=== PATIENT | male | born 1995 | race Two or more races ===

== ENCOUNTER 2021-06-17 16:31 | Inpatient (IN) | payer MEDICAID ==
[~2021-06-17] VITALS: Ht 170.2 cm; Wt 91.2 kg
[2021-06-17] MEDS ORDERED: HALOPERIDOL 5 MG TABLET PO PRN (19:15)
[2021-06-17] MEDS ORDERED: ZOLPIDEM TARTRATE 10 MG TABLET PO PRN (19:15)
[2021-06-17] MEDS ORDERED: LORazepam 2 MG TABLET PO PRN (19:15)
[2021-06-18 04:42] VITALS: BP 137/88
[2021-06-18 07:52] LABS: BASOPHILS % (AUTO) 0.9 % (0.0-2.0); EOSINOPHILS % (AUTO) 1.7 % (1.0-6.0); HEMATOCRIT 46.6 % (41-53); LYMPHOCYTES # (AUTO) 2.5 K/uL (1.0-4.8); LYMPHOCYTES % (AUTO) 48.6 % (22.0-44.0); MEAN CORPUSCULAR HEMOGLOBIN 29.2 pg (26.0-34.0); MEAN CORPUSCULAR HGB CONC 34.4 G/dL (31.0-37.0); MEAN CORPUSCULAR VOLUME 85 fL (80-100); MONOCYTES # (AUTO) 0.4 K/uL (0.1-1.0); MONOCYTES % (AUTO) 8.1 % (2.0-9.0); NEUTROPHILS # (AUTO) 2.1 K/uL (1.8-7.7); NEUTROPHILS % (AUTO) 40.7 % (40.0-70.0); PLATELET COUNT (AUTO) 201 K/uL (150-450); RED BLOOD CELL COUNT(AUTO) 5.47 MIL/uL (4.50-5.90); RED CELL DISTRIBUTION WIDTH 13.1 % (11.5-14.5)
[2021-06-18 08:02] LABS: HEMOGLOBIN A1C 5.4 % (3.8-5.6)
[2021-06-18 08:24] LABS: ALANINE AMINOTRANSFERASE 106 U/L (12-78); ALBUMIN 4.1 g/dL (3.4-5.0); ALKALINE PHOSPHATASE 56 U/L (46-116); ANION GAP 10 mmol/L (8-16); ASPARTATE AMINOTRANSFERASE 38 U/L (15-37); BILIRUBIN,TOTAL 0.4 mg/dL (0.1-1.0); CARBON DIOXIDE 29 mmol/L (22-29); CHLORIDE 103 mmol/L (98-107); CHOL/HDL RATIO 6.3 (4.2-7.3); CHOLESTEROL 175 mg/dL (131-200); CREATININE 0.95 mg/dL (0.60-1.30); FREE T4 (FREE THYROXINE) 1.04 ng/dL (0.76-1.46); GLOMERULAR FILTR. RATE CALC > 60 mL/min (>60); GLUCOSE,RANDOM 86 mg/dL (70-110); HDL CHOLESTEROL 28 mg/dL (40-60); LDL CHOL (CALC.) 122 mg/dL (0-130); POTASSIUM 3.9 mmol/L (3.5-5.1); SODIUM SERUM 142 mmol/L (136-145); THYROID STIMULATING HORMONE 5.82 uIU/mL (0.36-3.74); TOTAL PROTEIN, SERUM 7.3 g/dL (6.4-8.2); TRIGLYCERIDES 127 mg/dL (15-150); UREA NITROGEN, BLOOD 16 mg/dL (7-18)
[2021-06-18 09:11] VITALS: BP 142/89
[2021-06-18 16:12] VITALS: BP 131/78
[2021-06-19 04:06] VITALS: BP 128/83
[2021-06-19 08:28] VITALS: BP 121/78
[2021-06-19 16:13] VITALS: BP 106/64
[2021-06-20 00:58] VITALS: BP 125/66
[2021-06-20 08:11] VITALS: BP 116/75
== END 2021-06-20 16:31 | disposition home or self-care (01) | DRG 750 ==
LOC: B3A 19:04
PROVIDERS: ADMIT Psychiatry & Neurology Child & Adolescent Psychiatry; ATTEND Psychiatry & Neurology Child & Adolescent Psychiatry
DX: F20.9 Schizophrenia, unspecified (principal); F41.9 Anxiety disorder, unspecified; G47.00 Insomnia, unspecified; I10 Essential (primary) hypertension
CPT/HCPCS: 80053; 80061; 83036; 84439; 84443; 85025; 87081

== ENCOUNTER 2022-02-09 11:19 | Inpatient (IN) | payer MEDICAID, OTHER ==
[~2022-02-09] VITALS: Ht 170.2 cm; Wt 88.5 kg
[2022-02-09 12:05] LABS: BASOPHILS % (AUTO) 1.4 % (0.0-2.0); EOSINOPHILS % (AUTO) 0.3 % (1.0-6.0); HEMATOCRIT 47.3 % (41-53); HEMOGLOBIN 15.9 g/dL (13.5-17.5); LYMPHOCYTES # (AUTO) 1.5 K/uL (1.0-4.8); LYMPHOCYTES % (AUTO) 34.6 % (22.0-44.0); MEAN CORPUSCULAR HEMOGLOBIN 28.8 pg (26.0-34.0); MEAN CORPUSCULAR HGB CONC 33.7 G/dL (31.0-37.0); MEAN CORPUSCULAR VOLUME 86 fL (80-100); MONOCYTES # (AUTO) 0.4 K/uL (0.1-1.0); NEUTROPHILS # (AUTO) 2.3 K/uL (1.8-7.7); NEUTROPHILS % (AUTO) 53.7 % (40.0-70.0); PLATELET COUNT (AUTO) 205 K/uL (150-450); RED BLOOD CELL COUNT(AUTO) 5.53 MIL/uL (4.50-5.90); RED CELL DISTRIBUTION WIDTH 13.2 % (11.5-14.5)
[2022-02-09 12:14] LABS: ANION GAP 8 mmol/L (8-16); CALCIUM, TOTAL 9.2 mg/dL (8.8-10.5); CARBON DIOXIDE 28 mmol/L (22-29); CHLORIDE 101 mmol/L (98-107); CREATININE 0.79 mg/dL (0.60-1.30); GLUCOSE,RANDOM 93 mg/dL (70-110); POTASSIUM 3.7 mmol/L (3.5-5.1); SODIUM SERUM 137 mmol/L (136-145); UREA NITROGEN, BLOOD 16 mg/dL (7-18)
[2022-02-09 12:16] LABS: GLOMERULAR FILTR. RATE CALC > 60 mL/min (>60)
[2022-02-09 12:17] LABS: COVID AG,FIA SOURCE NASAL SWAB
[2022-02-09 12:20] LABS: ALANINE AMINOTRANSFERASE 88 U/L (12-78); ALBUMIN 4.5 g/dL (3.4-5.0); ALKALINE PHOSPHATASE 65 U/L (46-116); ASPARTATE AMINOTRANSFERASE 32 U/L (15-37); BILIRUBIN,TOTAL 0.4 mg/dL (0.1-1.0)
[2022-02-09] MEDS ORDERED: DiphenhydrAMINE HCL 25 MG CAPSULE PO ONE (12:30)
[2022-02-09] MEDS ORDERED: LORazepam 2 MG TABLET PO ONE (12:30)
[2022-02-09] MEDS ORDERED: HALOPERIDOL 5 MG TABLET PO ONE (12:30)
[2022-02-09] MEDS ORDERED: ZOLPIDEM TARTRATE 10 MG TABLET PO PRN (13:30)
[2022-02-09 20:53] VITALS: BP 126/70
[2022-02-09] MEDS ORDERED: INFLUENZA VIRUS VACCINE QVS 2022-23 (6MO+)/PF 60 MCG/0.5 ML SYRINGE IM. ONE (22:00)
[2022-02-10 08:00] VITALS: BP 138/77
[2022-02-10] MEDS: LORazepam 2 MG TABLET PO PRN ×2 (08:48→16:15)
[2022-02-10] MEDS: HALOPERIDOL 5 MG TABLET PO PRN ×2 (08:48→16:15)
[2022-02-10] MEDS ORDERED: DIVA-112 PO (12:13)
[2022-02-10] MEDS: DIVALPROEX SODIUM 500 MG DR TABLET PO SCH ×2 (13:11→20:18)
[2022-02-10] MEDS: RisperiDONE 1 MG TABLET PO SCH ×2 (13:11→20:18)
[2022-02-10 16:10] VITALS: BP 165/82
[2022-02-10] MEDS ORDERED: ONDANSETRON HCL 4 MG TABLET PO PRN (20:00)
[2022-02-10] MEDS ORDERED: ACETAMINOPHEN 325 MG TABLET PO PRN (20:00)
[2022-02-10] MEDS ORDERED: LOPERAMIDE HCL 2 MG CAPSULE PO PRN (20:00)
[2022-02-10] MEDS ORDERED: NICOTINE 14 MG/24 HOUR PATCH TD PRN (20:00)
[2022-02-10] MEDS ORDERED: MAGNESIUM HYDROXIDE SUSPENSION 30 ML UDCUP PO PRN (20:00)
[2022-02-10] MEDS ORDERED: DOCUSATE SODIUM 100 MG CAPSULE PO PRN (20:00)
[2022-02-10] MEDS ORDERED: MAG HYDROX/AL HYDROX/SIMETH ES 30 ML SUSPENSION UDCUP PO PRN (20:00)
[2022-02-10] MEDS ORDERED: ALBUTEROL SULFATE HFA 90 MCG/PUFF 8 GM INHALER IH PRN (20:00)
[2022-02-10] MEDS ORDERED: GuaiFENesin/D-METHORPHAN [SUGAR-FREE] 200-20MG/10 ML SYRUP UDCUP PO PRN (20:00)
[2022-02-10] MEDS ORDERED: IBUPROFEN 400 MG TABLET PO PRN (20:00)
[2022-02-10] MEDS ORDERED: PETROLATUM,WHITE 28 GM JELLY TP PRN (20:00)
[2022-02-10] MEDS ORDERED: CloNIDine HCL 0.1 MG TABLET PO PRN (20:00)
[2022-02-10 20:14] VITALS: BP 135/66
[2022-02-11] MEDS: DIVALPROEX SODIUM 500 MG DR TABLET PO SCH ×2 (08:37→20:04)
[2022-02-11] MEDS: RisperiDONE 1 MG TABLET PO SCH ×2 (08:37→20:04)
[2022-02-11 08:47] VITALS: BP 124/80
[2022-02-11] MEDS ORDERED: CLON0.5T4 PO (17:20)
[2022-02-11] MEDS ORDERED: PALI234D IM (17:20)
[2022-02-11 20:40] VITALS: BP 110/68
[2022-02-12] MEDS: LORazepam 2 MG TABLET PO PRN (08:36)
[2022-02-12] MEDS: HALOPERIDOL 5 MG TABLET PO PRN (08:36)
[2022-02-12 08:47] VITALS: BP 130/71
[2022-02-12] MEDS: DIVALPROEX SODIUM 500 MG DR TABLET PO SCH ×2 (08:52→22:27)
[2022-02-12] MEDS: RisperiDONE 1 MG TABLET PO SCH (08:52)
[2022-02-12 22:00] VITALS: BP 123/60
[2022-02-13] VITALS: BP 113/56
[2022-02-13] MEDS ORDERED: PALIPERIDONE PALMITATE 234 MG/1.5 ML SYRINGE IM SCH (09:00)
== END 2022-02-13 03:20 | disposition home or self-care (01) | DRG 750 ==
LOC: EMS 11:32 → B2S 14:35
PROVIDERS: ADMIT Psychiatry & Neurology Psychiatry; ATTEND Psychiatry & Neurology Psychiatry
DX: F20.0 Paranoid schizophrenia (principal); R45.850 Homicidal ideations; E66.9 Obesity, unspecified; F17.210 Nicotine dependence, cigarettes, uncomplicated; F31.9 Bipolar disorder, unspecified; D72.819 Decreased white blood cell count, unspecified; Z81.8 Family history of other mental and behavioral disorders; Z79.899 Other long term (current) drug therapy; Z68.30 Body mass index [BMI] 30.0-30.9, adult
CPT/HCPCS: 80053; 85025; 90686; G0480

== ENCOUNTER 2023-01-14 11:47 | Inpatient (IN) | payer MEDICAID, OTHER ==
[~2023-01-14] VITALS: Ht 172.7 cm; Wt 84.4 kg
[~2023-01-14 11:47] MED LIST: DIVA-112 PO; PALI234D IM
[2023-01-14] MEDS ORDERED: HALOPERIDOL LACTATE 5 MG/ML VIAL IM ONE (13:00)
[2023-01-14] MEDS ORDERED: LORazepam 2 MG/ML VIAL IM ONE (13:00)
[2023-01-14] MEDS ORDERED: DiphenhydrAMINE HCL 50 MG/ML VIAL IM ONE (13:00)
[2023-01-14 13:05] LABS: BASOPHILS % (AUTO) 0.5 % (0.0-2.0); EOSINOPHILS % (AUTO) 0.1 % (1.0-6.0); HEMATOCRIT 42.9 % (41-53); HEMOGLOBIN 14.9 g/dL (13.5-17.5); LYMPHOCYTES % (AUTO) 15.5 % (22.0-44.0); MEAN CORPUSCULAR HGB CONC 34.7 G/dL (31.0-37.0); MEAN CORPUSCULAR VOLUME 83 fL (80-100); MONOCYTES # (AUTO) 0.3 K/uL (0.1-1.0); MONOCYTES % (AUTO) 4.2 % (2.0-9.0); NEUTROPHILS # (AUTO) 5.1 K/uL (1.8-7.7); NEUTROPHILS % (AUTO) 79.7 % (40.0-70.0); PLATELET COUNT (AUTO) 195 K/uL (150-450); RED BLOOD CELL COUNT(AUTO) 5.14 MIL/uL (4.50-5.90); RED CELL DISTRIBUTION WIDTH 13.3 % (11.5-14.5); WHITE BLOOD COUNT (AUTO) 6.3 K/uL (4.5-11.0)
[2023-01-14 13:12] LABS: ANION GAP 9 mmol/L (8-16); CALCIUM, TOTAL 9.1 mg/dL (8.8-10.5); CARBON DIOXIDE 26 mmol/L (22-29); CHLORIDE 103 mmol/L (98-107); GLOMERULAR FILTR. RATE CALC > 60 mL/min (>60); GLUCOSE,RANDOM 94 mg/dL (70-110); POTASSIUM 3.2 mmol/L (3.5-5.1); SODIUM SERUM 138 mmol/L (136-145); UREA NITROGEN, BLOOD 21 mg/dL (7-18)
[2023-01-14 13:15] LABS: ALCOHOL, BLOOD (SERUM) < 3 mg/dL (0-10)
[2023-01-14] MEDS ORDERED: POTASSIUM CHLORIDE 20 MEQ ER TABLET PO ONE (13:15)
[2023-01-14 13:20] LABS: BILIRUBIN,TOTAL 0.4 mg/dL (0.1-1.0)
[2023-01-14 13:21] LABS: ALANINE AMINOTRANSFERASE 53 U/L (12-78); ALBUMIN 4.5 g/dL (3.4-5.0); TOTAL PROTEIN, SERUM 7.8 g/dL (6.4-8.2); VALPROIC ACID 7 mcg/mL (50-100)
[2023-01-14 13:30] LABS: ALKALINE PHOSPHATASE 65 U/L (46-116); ASPARTATE AMINOTRANSFERASE 35 U/L (15-37)
[2023-01-14 13:30] LABS: COVID AG,FIA SOURCE NASOPHARYNGEAL
[2023-01-14 13:33] LABS: APPEARANCE,URINE CLEAR (CLEAR); BILIRUBIN,URINE NEGATIVE (NEGATIVE); COLOR,URINE LIGHT YELLOW (YELLOW); GLUCOSE, URINE (UA) NEGATIVE (NEGATIVE); KETONES,URINE TRACE mg/dL (NEGATIVE); LEUKOCYTE ESTERASE ,URINE NEGATIVE (NEGATIVE); NITRATE,URINE NEGATIVE (NEGATIVE); OCCULT BLOOD,URINE NEGATIVE (NEGATIVE); PROTEIN,URINE TRACE mg/dL (NEGATIVE); SPECIFIC GRAVITIY, URINE 1.032 (1.003-1.030); UROBILINOGEN,URINE <=1.0 mg/dL (<=1.0)
[2023-01-14 13:42] LABS: ALCOHOL, URINE DRUG SCREEN NEGATIVE (NEGATIVE); AMPHET/METH SCREEN,URINE NEGATIVE (NEGATIVE); BARBITURATE SCREEN, URINE NEGATIVE (NEGATIVE); BENZODIAZEPINES SCREEN,URINE NEGATIVE (NEGATIVE); CANNABINOID SCREEN,URINE NEGATIVE (NEGATIVE); COCAINE SCREEN,URINE NEGATIVE (NEGATIVE); METHADONE SCREEN, URINE NEGATIVE (NEGATIVE); OPIATE SCREEN,URINE NEGATIVE (NEGATIVE); PHENCYCLIDINE SCREEN,URINE NEGATIVE (NEGATIVE)
[2023-01-14 13:53] LABS: SARS-COV2 (COVID) ANTIGEN,FIA Negative (Negative)
[2023-01-15] MEDS ORDERED: INFLUENZA VIRUS VACCINE QVS 2023-24 (6MO+)/PF 60 MCG/0.5 ML SYRINGE IM. ONE (00:45)
[2023-01-15 00:47] VITALS: BP 110/78; PULSE 78; RESP 18; TEMP 97.5; O2SAT 99
[2023-01-15] MEDS: LORazepam 2 MG TABLET PO PRN ×2 (08:08→20:26)
[2023-01-15] MEDS: QUEtiapine FUMARATE 100 MG TABLET PO PRN (08:08)
[2023-01-15 08:31] VITALS: BP 145/89; PULSE 77; RESP 17; TEMP 97.9; O2SAT 99
[2023-01-15 08:32] VITALS: BP 145/85; PULSE 77; RESP 17; TEMP 97.9; O2SAT 99
[2023-01-15 08:57] LABS: HEMOGLOBIN A1C 5.2 % (3.8-5.6)
[2023-01-15 09:03] LABS: CHOL/HDL RATIO 4.2 (4.2-7.3); FREE T4 (FREE THYROXINE) 0.94 ng/dL (0.76-1.46); POTASSIUM 4.2 mmol/L (3.5-5.1); THYROID STIMULATING HORMONE 1.88 uIU/mL (0.36-3.74)
[2023-01-15] MEDS ORDERED: RISP2TAB45 PO (09:35)
[2023-01-15] MEDS ORDERED: VALPROIC ACID 250 MG CAPSULE PO SCH (09:45)
[2023-01-15] MEDS: DIVALPROEX SODIUM 500 MG DR TABLET PO SCH ×2 (10:27→20:26)
[2023-01-15] MEDS: RisperiDONE 2 MG TABLET PO SCH ×2 (10:27→20:26)
[2023-01-15] MEDS ORDERED: CLON0.5T4 PO (12:40)
[2023-01-15] MEDS ORDERED: CloNIDine HCL 0.1 MG TABLET PO PRN (14:15)
[2023-01-15] MEDS ORDERED: PETROLATUM,WHITE 28 GM JELLY TP PRN (14:15)
[2023-01-15] MEDS ORDERED: ACETAMINOPHEN 325 MG TABLET PO PRN (14:15)
[2023-01-15] MEDS ORDERED: MAGNESIUM HYDROXIDE SUSPENSION 30 ML UDCUP PO PRN (14:15)
[2023-01-15] MEDS ORDERED: NICOTINE 14 MG/24 HOUR PATCH TD PRN (14:15)
[2023-01-15] MEDS ORDERED: LOPERAMIDE HCL 2 MG CAPSULE PO PRN (14:15)
[2023-01-15] MEDS ORDERED: GuaiFENesin/D-METHORPHAN [SUGAR-FREE] 200-20MG/10 ML SYRUP UDCUP PO PRN (14:15)
[2023-01-15] MEDS ORDERED: ONDANSETRON HCL 4 MG TABLET PO PRN (14:15)
[2023-01-15] MEDS ORDERED: DOCUSATE SODIUM 100 MG CAPSULE PO PRN (14:15)
[2023-01-15] MEDS ORDERED: ALBUTEROL SULFATE HFA 90 MCG/PUFF 8 GM INHALER IH PRN (14:15)
[2023-01-15] MEDS ORDERED: MAG HYDROX/ALUMINUM HYD/SIMETH ES 30 ML SUSPENSION UDCUP PO PRN (14:15)
[2023-01-15] MEDS ORDERED: IBUPROFEN 400 MG TABLET PO PRN (14:15)
[2023-01-15 20:21] VITALS: BP 126/68; PULSE 70; RESP 18; TEMP 97.7; O2SAT 96
[2023-01-16 08:40] LABS: HEMOGLOBIN A1C 5.3 % (3.8-5.6)
[2023-01-16 08:48] LABS: CHOL/HDL RATIO 4.3 (4.2-7.3); THYROID STIMULATING HORMONE 2.52 uIU/mL (0.36-3.74)
[2023-01-16 08:50] VITALS: RESP 18
[2023-01-16] MEDS: DIVALPROEX SODIUM 500 MG DR TABLET PO SCH ×2 (09:50→20:10)
[2023-01-16] MEDS: LORazepam 2 MG TABLET PO PRN ×2 (09:50→19:01)
[2023-01-16] MEDS: RisperiDONE 2 MG TABLET PO SCH ×2 (09:51→20:10)
[2023-01-16] MEDS: QUEtiapine FUMARATE 100 MG TABLET PO PRN (19:01)
[2023-01-16 20:22] VITALS: BP 106/62; PULSE 70; RESP 18; TEMP 97.8; O2SAT 97
[2023-01-17] MEDS: RisperiDONE 2 MG TABLET PO SCH ×2 (08:12→21:02)
[2023-01-17] MEDS: DIVALPROEX SODIUM 500 MG DR TABLET PO SCH ×2 (08:12→21:02)
[2023-01-17 08:23] VITALS: RESP 18
[2023-01-17] MEDS: QUEtiapine FUMARATE 100 MG TABLET PO PRN (17:08)
[2023-01-17] MEDS: LORazepam 2 MG TABLET PO PRN (17:08)
[2023-01-17 20:26] VITALS: BP 104/60; PULSE 75; RESP 18; TEMP 97.6; O2SAT 98
[2023-01-18 09:05] VITALS: BP 107/60; PULSE 82; RESP 17; TEMP 97.3; O2SAT 97
[2023-01-18] MEDS: DIVALPROEX SODIUM 500 MG DR TABLET PO SCH ×2 (09:09→20:29)
[2023-01-18] MEDS: RisperiDONE 2 MG TABLET PO SCH ×2 (09:09→20:29)
[2023-01-18] MEDS: LORazepam 2 MG TABLET PO PRN (16:30)
[2023-01-18] MEDS: QUEtiapine FUMARATE 100 MG TABLET PO PRN (16:30)
[2023-01-18 20:16] VITALS: BP 114/62; PULSE 91; RESP 20; TEMP 98; O2SAT 99
[2023-01-18] MEDS: ZOLPIDEM TARTRATE 10 MG TABLET PO PRN (20:29)
[2023-01-19] MEDS: DIVALPROEX SODIUM 500 MG DR TABLET PO SCH ×2 (08:05→20:08)
[2023-01-19] MEDS: RisperiDONE 2 MG TABLET PO SCH ×2 (08:05→20:08)
[2023-01-19] MEDS: QUEtiapine FUMARATE 100 MG TABLET PO PRN (08:25)
[2023-01-19] MEDS: LORazepam 2 MG TABLET PO PRN (08:25)
[2023-01-19 08:26] VITALS: BP 100/60; PULSE 70; RESP 18; TEMP 97.6; O2SAT 98
[2023-01-19] MEDS: ZOLPIDEM TARTRATE 10 MG TABLET PO PRN (20:08)
[2023-01-20 02:14] VITALS: RESP 18; TEMP 97.9
[2023-01-20 08:24] VITALS: BP 106/60; PULSE 76; RESP 18; TEMP 97.7; O2SAT 99
[2023-01-20] MEDS: LORazepam 2 MG TABLET PO PRN ×2 (08:26→16:39)
[2023-01-20] MEDS: RisperiDONE 2 MG TABLET PO SCH ×2 (08:26→20:31)
[2023-01-20] MEDS: DIVALPROEX SODIUM 500 MG DR TABLET PO SCH ×2 (08:26→20:31)
[2023-01-20] MEDS: QUEtiapine FUMARATE 100 MG TABLET PO PRN ×2 (08:26→16:39)
[2023-01-20 20:17] VITALS: BP 106/62; PULSE 63; RESP 18; TEMP 97.8; O2SAT 97
[2023-01-20] MEDS: ZOLPIDEM TARTRATE 10 MG TABLET PO PRN (20:31)
[2023-01-21 08:20] VITALS: BP 116/72; PULSE 79; RESP 18; TEMP 97.8; O2SAT 99
[2023-01-21] MEDS: LORazepam 2 MG TABLET PO PRN ×2 (08:51→16:30)
[2023-01-21] MEDS: DIVALPROEX SODIUM 500 MG DR TABLET PO SCH ×2 (08:51→20:57)
[2023-01-21] MEDS: QUEtiapine FUMARATE 100 MG TABLET PO PRN ×2 (08:51→16:30)
[2023-01-21] MEDS: RisperiDONE 2 MG TABLET PO SCH ×2 (08:51→20:57)
[2023-01-21 20:48] VITALS: BP 118/63; PULSE 75; RESP 18; TEMP 97.8
[2023-01-21] MEDS: ZOLPIDEM TARTRATE 10 MG TABLET PO PRN (20:57)
[2023-01-22 08:41] VITALS: RESP 18
[2023-01-22] MEDS: DIVALPROEX SODIUM 500 MG DR TABLET PO SCH ×2 (08:42→20:40)
[2023-01-22] MEDS: RisperiDONE 2 MG TABLET PO SCH ×2 (08:42→20:40)
[2023-01-22] MEDS: QUEtiapine FUMARATE 100 MG TABLET PO PRN (16:57)
[2023-01-22] MEDS: LORazepam 2 MG TABLET PO PRN (16:57)
[2023-01-22 20:28] VITALS: BP 110/62; PULSE 70; RESP 18; TEMP 97.6; O2SAT 96
[2023-01-22] MEDS: ZOLPIDEM TARTRATE 10 MG TABLET PO PRN (20:40)
[2023-01-23] MEDS: DIVALPROEX SODIUM 500 MG DR TABLET PO SCH ×2 (08:47→21:14)
[2023-01-23] MEDS: RisperiDONE 2 MG TABLET PO SCH ×2 (08:47→21:15)
[2023-01-23 12:40] VITALS: BP 117/68; PULSE 75; RESP 18; TEMP 97.8; O2SAT 97
[2023-01-23 20:22] VITALS: BP 118/70; PULSE 111; RESP 20; TEMP 97.8; O2SAT 96
[2023-01-24] MEDS: ZOLPIDEM TARTRATE 10 MG TABLET PO PRN (01:08)
[2023-01-24] MEDS: RisperiDONE 2 MG TABLET PO SCH ×2 (08:22→20:57)
[2023-01-24] MEDS: DIVALPROEX SODIUM 500 MG DR TABLET PO SCH ×2 (08:22→20:57)
[2023-01-24 08:43] VITALS: BP 120/70; PULSE 100; RESP 18; TEMP 97.7; O2SAT 98
[2023-01-24] MEDS: LORazepam 2 MG TABLET PO PRN (16:51)
[2023-01-24] MEDS: QUEtiapine FUMARATE 100 MG TABLET PO PRN (16:51)
[2023-01-25 00:53] VITALS: BP 132/79; PULSE 93; RESP 18; TEMP 97.6
[2023-01-25] MEDS: LORazepam 2 MG TABLET PO PRN ×2 (07:42→20:49)
[2023-01-25] MEDS: DIVALPROEX SODIUM 500 MG DR TABLET PO SCH ×2 (08:03→20:49)
[2023-01-25] MEDS: RisperiDONE 2 MG TABLET PO SCH ×2 (08:03→20:49)
[2023-01-25 08:12] VITALS: BP 128/73; PULSE 100; RESP 18; TEMP 97.7; O2SAT 97
[2023-01-25 20:19] VITALS: BP 125/62; PULSE 110; RESP 20; TEMP 97.5; O2SAT 99
[2023-01-25] MEDS: QUEtiapine FUMARATE 100 MG TABLET PO PRN (20:49)
[2023-01-26] MEDS: LORazepam 2 MG TABLET PO PRN ×2 (08:41→20:53)
[2023-01-26] MEDS: RisperiDONE 2 MG TABLET PO SCH ×2 (08:41→20:53)
[2023-01-26] MEDS: QUEtiapine FUMARATE 100 MG TABLET PO PRN (08:41)
[2023-01-26] MEDS: DIVALPROEX SODIUM 500 MG DR TABLET PO SCH ×2 (08:41→20:53)
[2023-01-26 08:42] VITALS: BP 126/73; PULSE 92; RESP 18; TEMP 98; O2SAT 99
[2023-01-26 20:28] VITALS: BP 130/64; PULSE 102; RESP 18; TEMP 97.8; O2SAT 98
[2023-01-27] MEDS: LORazepam 2 MG TABLET PO PRN (04:22)
[2023-01-27] MEDS: RisperiDONE 2 MG TABLET PO SCH ×2 (08:25→20:47)
[2023-01-27] MEDS: DIVALPROEX SODIUM 500 MG DR TABLET PO SCH ×2 (08:25→20:47)
[2023-01-27 10:06] VITALS: BP 116/73; PULSE 84; RESP 18; TEMP 97.3; O2SAT 97
[2023-01-27 20:33] VITALS: RESP 16
[2023-01-28] MEDS: RisperiDONE 2 MG TABLET PO SCH ×2 (08:14→20:45)
[2023-01-28] MEDS: DIVALPROEX SODIUM 500 MG DR TABLET PO SCH ×2 (08:14→20:45)
[2023-01-28 09:47] VITALS: BP 116/74; PULSE 90; RESP 18; TEMP 97.7; O2SAT 97
[2023-01-28 20:44] VITALS: BP 102/62; PULSE 68; RESP 18; TEMP 97.7
[2023-01-29] MEDS: RisperiDONE 2 MG TABLET PO SCH ×2 (08:20→20:40)
[2023-01-29] MEDS: DIVALPROEX SODIUM 500 MG DR TABLET PO SCH ×2 (08:20→20:40)
[2023-01-29 08:47] VITALS: BP 120/58; PULSE 75; RESP 18; TEMP 97; O2SAT 97
[2023-01-29] MEDS: QUEtiapine FUMARATE 100 MG TABLET PO PRN (17:15)
[2023-01-29 20:20] VITALS: BP 108/64; PULSE 67; RESP 18; TEMP 97.6; O2SAT 97
[2023-01-30 08:43] VITALS: RESP 18
[2023-01-30] MEDS: RisperiDONE 2 MG TABLET PO SCH ×2 (08:54→20:38)
[2023-01-30] MEDS: DIVALPROEX SODIUM 500 MG DR TABLET PO SCH ×2 (08:54→20:38)
[2023-01-30] MEDS: QUEtiapine FUMARATE 100 MG TABLET PO PRN (09:32)
[2023-01-30 20:38] VITALS: BP 132/72; PULSE 101; RESP 20; TEMP 97.5; O2SAT 97
[2023-01-31 08:42] VITALS: BP 114/75; PULSE 81; RESP 17; TEMP 98; O2SAT 98
[2023-01-31] MEDS: RisperiDONE 2 MG TABLET PO SCH ×2 (09:06→20:18)
[2023-01-31] MEDS: DIVALPROEX SODIUM 500 MG DR TABLET PO SCH ×2 (09:06→20:19)
[2023-01-31 20:17] VITALS: BP 114/62; PULSE 96; RESP 20; TEMP 97.8; O2SAT 98
[2023-01-31] MEDS: QUEtiapine FUMARATE 100 MG TABLET PO PRN (20:19)
[2023-02-01 08:44] VITALS: BP 110/73; PULSE 79; RESP 17; TEMP 98.3; O2SAT 98
[2023-02-01] MEDS: DIVALPROEX SODIUM 500 MG DR TABLET PO SCH ×2 (08:47→20:38)
[2023-02-01] MEDS: RisperiDONE 2 MG TABLET PO SCH ×2 (08:47→20:38)
[2023-02-01 21:09] VITALS: BP 141/61; PULSE 66; RESP 17; TEMP 97.1; O2SAT 98
[2023-02-02] MEDS: RisperiDONE 2 MG TABLET PO SCH ×2 (08:06→20:30)
[2023-02-02] MEDS: DIVALPROEX SODIUM 500 MG DR TABLET PO SCH ×2 (08:06→20:29)
[2023-02-02 08:16] VITALS: BP 131/74; PULSE 70; RESP 18; TEMP 98.3; O2SAT 99
[2023-02-02 20:10] VITALS: BP 122/71; PULSE 78; RESP 18; TEMP 98.3; O2SAT 97
[2023-02-02] MEDS: QUEtiapine FUMARATE 100 MG TABLET PO PRN (20:30)
[2023-02-03 08:12] VITALS: RESP 18
[2023-02-03] MEDS: DIVALPROEX SODIUM 500 MG DR TABLET PO SCH ×2 (08:21→20:22)
[2023-02-03] MEDS: RisperiDONE 2 MG TABLET PO SCH ×2 (08:21→20:22)
[2023-02-03] MEDS ORDERED: RISP2TAB86 PO (16:35)
[2023-02-03] MEDS ORDERED: DIVA-112 PO (16:35)
[2023-02-03] MEDS: QUEtiapine FUMARATE 100 MG TABLET PO PRN (20:22)
[2023-02-03 20:44] VITALS: BP 108/62; PULSE 80; RESP 18; TEMP 97.8; O2SAT 96
[2023-02-04] MEDS: DIVALPROEX SODIUM 500 MG DR TABLET PO SCH ×2 (08:21→20:26)
[2023-02-04] MEDS: QUEtiapine FUMARATE 100 MG TABLET PO PRN ×2 (08:21→20:27)
[2023-02-04] MEDS: RisperiDONE 2 MG TABLET PO SCH ×2 (08:21→20:27)
[2023-02-04 08:44] VITALS: BP 105/60; PULSE 67; RESP 17; TEMP 97.5; O2SAT 98
[2023-02-04 20:41] VITALS: BP 114/63; PULSE 72; RESP 18; TEMP 97.8; O2SAT 99
[2023-02-05] MEDS: RisperiDONE 2 MG TABLET PO SCH ×2 (08:14→20:16)
[2023-02-05] MEDS: DIVALPROEX SODIUM 500 MG DR TABLET PO SCH ×2 (08:14→20:16)
[2023-02-05 08:32] VITALS: BP 122/69; PULSE 82; RESP 18; TEMP 97.7; O2SAT 98
[2023-02-05] MEDS: QUEtiapine FUMARATE 100 MG TABLET PO PRN (20:16)
[2023-02-05 20:35] VITALS: BP 110/70; PULSE 73; RESP 16; TEMP 97.8; O2SAT 99
[2023-02-06 08:42] VITALS: BP 112/68; PULSE 86; RESP 17; TEMP 98.2; O2SAT 97
[2023-02-06] MEDS: DIVALPROEX SODIUM 500 MG DR TABLET PO SCH ×2 (09:30→20:38)
[2023-02-06] MEDS: RisperiDONE 2 MG TABLET PO SCH ×2 (09:30→20:38)
[2023-02-06] MEDS: QUEtiapine FUMARATE 100 MG TABLET PO PRN (20:38)
[2023-02-06 20:54] VITALS: BP 120/77; PULSE 68; RESP 18; TEMP 97.3; O2SAT 97
[2023-02-07] MEDS: RisperiDONE 2 MG TABLET PO SCH (08:06)
[2023-02-07] MEDS: DIVALPROEX SODIUM 500 MG DR TABLET PO SCH (08:06)
[2023-02-07 08:22] VITALS: BP 106/71; PULSE 82; RESP 17; TEMP 98.5; O2SAT 98
[2023-02-07] MEDS ORDERED: DIVA-112 PO (09:37)
[2023-02-07] MEDS ORDERED: RISP2TAB86 PO (09:37)
== END 2023-02-07 15:00 | disposition home or self-care (01) | DRG 750 ==
LOC: EMS 12:19 → B3A 22:25 → EMS 01-15 00:02 → B3A 01-19 20:32
PROVIDERS: ADMIT Psychiatry & Neurology Psychiatry; ATTEND Psychiatry & Neurology Psychiatry
PROC: GZHZZZZ Group Psychotherapy (ICD-10-PCS; principal; 2023-01-15)
DX: F20.0 Paranoid schizophrenia (principal); R45.851 Suicidal ideations; F17.210 Nicotine dependence, cigarettes, uncomplicated; R03.0 Elevated blood-pressure reading, without diagnosis of hypertension; F12.90 Cannabis use, unspecified, uncomplicated; Z79.899 Other long term (current) drug therapy; Z59.00 Homelessness unspecified; Z20.822 Contact with and (suspected) exposure to COVID-19
CPT/HCPCS: 80053; 80061; 80164; 80307; 81003; 83036; 84132; 84439; 84443; 85025; 87081; 99285; G0480; J1200; J1630; J2060

== ENCOUNTER 2023-06-29 01:36 | Inpatient (IN) | payer MEDICAID, OTHER ==
[~2023-06-29] VITALS: Ht 170.2 cm; Wt 85.7 kg
[~2023-06-29 01:36] MED LIST changes: -PALI234D IM; +RISP-32 PO
[2023-06-29 03:17] LABS: BASOPHILS % (AUTO) 0.9 % (0.0-2.0); EOSINOPHILS % (AUTO) 4.1 % (1.0-6.0); HEMATOCRIT 43.3 % (41-53); HEMOGLOBIN 15.3 g/dL (13.5-17.5); LYMPHOCYTES # (AUTO) 1.7 K/uL (1.0-4.8); LYMPHOCYTES % (AUTO) 29.5 % (22.0-44.0); MEAN CORPUSCULAR HEMOGLOBIN 29.8 pg (26.0-34.0); MEAN CORPUSCULAR HGB CONC 35.4 G/dL (31.0-37.0); MEAN CORPUSCULAR VOLUME 84 fL (80-100); MONOCYTES # (AUTO) 0.5 K/uL (0.1-1.0); NEUTROPHILS # (AUTO) 3.3 K/uL (1.8-7.7); NEUTROPHILS % (AUTO) 57.5 % (40.0-70.0); PLATELET COUNT (AUTO) 199 K/uL (150-450); RED BLOOD CELL COUNT(AUTO) 5.13 MIL/uL (4.50-5.90); RED CELL DISTRIBUTION WIDTH 13.6 % (11.5-14.5); WHITE BLOOD COUNT (AUTO) 5.7 K/uL (4.5-11.0)
[2023-06-29 03:17] LABS: COVID AG,FIA SOURCE NASAL SWAB
[2023-06-29] MEDS: RisperiDONE 1 MG TABLET PO ONE (03:24)
[2023-06-29 03:27] LABS: ANION GAP 11 mmol/L (8-16); CALCIUM, TOTAL 8.7 mg/dL (8.8-10.5); CARBON DIOXIDE 27 mmol/L (22-29); CHLORIDE 102 mmol/L (98-107); GLOMERULAR FILTR. RATE CALC > 60 mL/min (>60); GLUCOSE,RANDOM 114 mg/dL (70-110); POTASSIUM 3.7 mmol/L (3.5-5.1); SODIUM SERUM 140 mmol/L (136-145); UREA NITROGEN, BLOOD 21 mg/dL (7-18)
[2023-06-29 03:34] LABS: ALANINE AMINOTRANSFERASE 47 U/L (12-78); ALBUMIN 4.2 g/dL (3.4-5.0); ALKALINE PHOSPHATASE 71 U/L (46-116); ASPARTATE AMINOTRANSFERASE 31 U/L (15-37); BILIRUBIN,TOTAL 0.3 mg/dL (0.1-1.0); TOTAL PROTEIN, SERUM 7.7 g/dL (6.4-8.2)
[2023-06-29 03:41] LABS: SARS-COV2 (COVID) ANTIGEN,FIA Negative (Negative)
[2023-06-29 03:45] LABS: ALCOHOL, BLOOD (SERUM) < 3 mg/dL (0-10)
[2023-06-29] MEDS ORDERED: ZOLPIDEM TARTRATE 10 MG TABLET PO PRN (03:45)
[2023-06-29] MEDS: HALOPERIDOL 5 MG TABLET PO PRN (04:12)
[2023-06-29] MEDS: LORazepam 2 MG TABLET PO PRN (04:12)
[2023-06-29] MEDS: NICOTINE 7 MG/24 HOUR PATCH TD ONE ×2 (06:03)
[2023-06-29] MEDS ORDERED: MAG HYDROX/ALUMINUM HYD/SIMETH ES 30 ML SUSPENSION UDCUP PO PRN (07:00)
[2023-06-29] MEDS ORDERED: ALBUTEROL SULFATE HFA 90 MCG/PUFF 8 GM INHALER IH PRN (07:00)
[2023-06-29] MEDS ORDERED: ACETAMINOPHEN 325 MG TABLET PO PRN (07:00)
[2023-06-29] MEDS ORDERED: IBUPROFEN 400 MG TABLET PO PRN (07:00)
[2023-06-29] MEDS ORDERED: CloNIDine HCL 0.1 MG TABLET PO PRN (07:00)
[2023-06-29] MEDS ORDERED: DOCUSATE SODIUM 100 MG CAPSULE PO PRN (07:00)
[2023-06-29] MEDS ORDERED: PETROLATUM,WHITE 28 GM JELLY TP PRN (07:00)
[2023-06-29] MEDS ORDERED: MAGNESIUM HYDROXIDE SUSPENSION 30 ML UDCUP PO PRN (07:00)
[2023-06-29] MEDS ORDERED: GuaiFENesin/D-METHORPHAN [SUGAR-FREE] 200-20MG/10 ML SYRUP UDCUP PO PRN (07:00)
[2023-06-29] MEDS ORDERED: ONDANSETRON HCL 4 MG TABLET PO PRN (07:00)
[2023-06-29] MEDS ORDERED: LOPERAMIDE HCL 2 MG CAPSULE PO PRN (07:00)
[2023-06-29 08:56] VITALS: BP 118/61; PULSE 73; RESP 18; TEMP 97.7; O2SAT 98
[2023-06-29] MEDS: DIVALPROEX SODIUM 500 MG DR TABLET PO SCH (11:19)
[2023-06-29] MEDS: RisperiDONE 2 MG TABLET PO SCH (11:34)
[2023-06-29 21:43] VITALS: BP 118/73; PULSE 72; RESP 18; TEMP 98; O2SAT 98
[2023-06-30 08:37] LABS: HEMOGLOBIN A1C 5.3 % (3.8-5.6)
[2023-06-30 09:00] LABS: CHOL/HDL RATIO 4.9 (4.2-7.3); THYROID STIMULATING HORMONE 1.26 uIU/mL (0.36-3.74)
[2023-06-30 14:27] VITALS: BP 116/74; PULSE 87; RESP 18; TEMP 97.7; O2SAT 98
[2023-06-30] MEDS: NICOTINE 14 MG/24 HOUR PATCH TD PRN (16:39)
[2023-06-30 21:24] VITALS: BP 128/75; PULSE 96; RESP 20; TEMP 97.8; O2SAT 99
[2023-07-01 08:57] VITALS: BP 118/70; PULSE 95; RESP 18; TEMP 98; O2SAT 98
[2023-07-01 22:00] VITALS: BP 115/67; PULSE 68; RESP 17; TEMP 98; O2SAT 97
[2023-07-02 08:44] VITALS: BP 113/77; PULSE 83; RESP 17; TEMP 98.4; O2SAT 96
[2023-07-02 21:19] VITALS: BP 118/72; PULSE 80; RESP 17; TEMP 98; O2SAT 96
[2023-07-03] MEDS: DIVALPROEX SODIUM 500 MG DR TABLET PO SCH (08:43)
[2023-07-03 08:55] VITALS: BP 110/68; PULSE 70; RESP 16; TEMP 98; O2SAT 100
[2023-07-03 20:21] VITALS: BP 122/76; PULSE 78; RESP 18; TEMP 98.1; O2SAT 97
[2023-07-04 09:54] VITALS: BP 119/71; PULSE 83; RESP 18; TEMP 98.5; O2SAT 98
[2023-07-04 21:48] VITALS: BP 140/91; PULSE 73; RESP 19; TEMP 98.1; O2SAT 98
[2023-07-05 09:05] VITALS: BP 119/61; PULSE 79; RESP 17; TEMP 98; O2SAT 98
== END 2023-07-05 14:35 | disposition home or self-care (01) | DRG 750 ==
LOC: EMS 01:37 → B2S 03:36
PROVIDERS: ADMIT Psychiatry & Neurology Psychiatry; ATTEND Psychiatry & Neurology Psychiatry
DX: F20.0 Paranoid schizophrenia (principal); R45.851 Suicidal ideations; Z91.148 Patient's other noncompliance with medication regimen for other reason; F20.9 Schizophrenia, unspecified; Z20.822 Contact with and (suspected) exposure to COVID-19; F15.90 Other stimulant use, unspecified, uncomplicated; F17.210 Nicotine dependence, cigarettes, uncomplicated; G47.00 Insomnia, unspecified; R73.9 Hyperglycemia, unspecified
CPT/HCPCS: 80053; 80061; 80164; 83036; 84443; 85025; 99285; G0480